=== PATIENT | female | born 2000 | race Caucasian/White ===

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

== ENCOUNTER 2021-07-12 04:35 | Emergency (ER) | payer BC ==
[~2021-07-12] VITALS: Ht 160 cm; Wt 52.2 kg
[2021-07-12] MEDS ORDERED: TETRACAINE HCL/PF 0.5% OPHTHALMIC DROPS 4 ML OP ONE (04:36)
[2021-07-12] MEDS ORDERED: BALANCED SALT IRRIG SOLN 15 ML IO ONE (04:36)
[2021-07-12] MEDS ORDERED: FLUORESCEIN SODIUM 1 MG OPHTHALMIC STRIP OP ONE (04:36)
[2021-07-12 04:41] VITALS: BP_SYST 114
--- NOTE | 2021-07-12 04:47 | NUR ---
Patient to ER bed 7 to gown for evaluation. Side rails up.
--- NOTE | 2021-07-12 04:49 | NUR ---
Patient BIB by family from home. C/O right eye pain, redness x 1 day. Patient reported, had right eye pain since Friday ~ 2200 PM, denies injury or trauma right eye. A/O,X4, right eye sharp pain, redness, pain rate 7/10.
--- NOTE | 2021-07-12 05:05 | NUR ---
ER Dr. Curiel at bedside examining patient.
--- NOTE | 2021-07-12 05:18 | NUR ---
Patient can not read Snellen eye chart, due to no glasses on.
[2021-07-12 05:46] VITALS: BP_SYST 114
--- NOTE | 2021-07-12 05:46 | NUR ---
Patient given written and verbal discharge instructions and verbalizes understanding. ER MD discussed with patient the results and treatment provided. Patient in stable condition. ID arm band removed. Rx of Prednisolone eye drop given. Patient educated on pain management and to follow up with PMD. Pain Scale 1/10. Opportunity for questions provided and answered. Medication side effect fact sheet provided.
== END 2021-07-12 05:46 | disposition home or self-care (01) ==
LOC: SED 04:35
DX: H20.9 Unspecified iridocyclitis (principal); Z79.899 Other long term (current) drug therapy
CPT/HCPCS: 99283